=== PATIENT | male | born 1950 | race Caucasian/White ===

== ENCOUNTER → 2019-07-20 | Outpatient (CLI) | payer OTHER | LOC: CAT 12:57 | DX: Z13.6 Encounter for screening for cardiovascular disorders (principal); E78.00 Pure hypercholesterolemia, unspecified; I25.10 Atherosclerotic heart disease of native coronary artery without angina pectoris ==

== ENCOUNTER 2019-09-26 10:10 | Inpatient (IN) | payer OTHER, MEDICARE ==
[2019-09-13 13:13] LABS: HEMATOCRIT 44.3 % (42.0-52.0); HEMOGLOBIN 14.5 gm/dL (14.0-18.0); MCH 29.7 pg (26.0-34.0); MCHC 32.6 g/dL (28.0-37.0); MCV 91.3 fL (80.0-100.0); RBC 4.86 mil/uL (4.50-6.00); RDW 13.8 % (10.5-14.5); WBC 9.4 thou/uL (4.0-11.0)
[2019-09-13 13:16] LABS: URINE BILIRUBIN NEGATIVE (Negative); URINE BLOOD NEGATIVE (Negative); URINE CLARITY CLEAR; URINE COLOR YELLOW; URINE GLUCOSE-RANDOM* NEGATIVE (Negative); URINE KETONES NEGATIVE (Negative); URINE LEUKOCYTES-REFLEX NEGATIVE (Negative); URINE NITRITE-REFLEX NEGATIVE (Negative); URINE PROTEIN (DIPSTICK) NEGATIVE (Negative); URINE SPECIFIC GRAVITY 1.025 (1.005-1.035); URINE UROBILINOGEN 0.2 E.U./dl (0.2-1.0)
[2019-09-13 13:21] LABS: CALCIUM 9.7 mg/dL (8.5-10.1); CREATININE 1.2 mg/dL (0.7-1.3); POTASSIUM 4.1 mmol/L (3.5-5.1)
[2019-09-13 13:26] LABS: PROTIME 10.5 Seconds (9.3-11.4)
[~2019-09-26] VITALS: Ht 177.8 cm; Wt 102.1 kg
--- NOTE | ~2019-09-26 | O ---
[facility] [place] [address] OPERATIVE REPORT Name: GABRIELLE TREVIÑO Room #: 444-P [facility] M.R.#: [id number] Admission: 09/26/19 Attend Phys: Huseyin Gomez MD Discharge: Date of : 52 Report #: [id number] THIS REPORT FOR: //name// CC: Kelvin Gomez DATE OF SERVICE: 09/26/2019 PREOPERATIVE DIAGNOSIS: Right knee osteoarthritis. POSTOPERATIVE DIAGNOSIS: Right knee osteoarthritis. PROCEDURE: Right total knee arthroplasty using Navio robotic assistant to the dean. SURGEON: Huseyin Gomez MD SENIOR DIRECTOR CREATIVE SERVICES: Sona Gold PA-C. INDICATIONS FOR SENIOR DIRECTOR CREATIVE SERVICES: Throughout the case, extensive retraction and manipulation of the knee was required. This was afforded to me by my assistant to the dean. ANESTHESIA: LMA with an adductor canal block. IMPLANTS: [employer]hew size 6 Legion posterior stabilized femur, size 5 tibia, size 10 polyethylene and size 35 patella. TOURNIQUET TIME: 57 minutes. ESTIMATED BLOOD LOSS: 25 mL. COMPLICATIONS: None. SPECIMENS: None. CONDITION UPON LEAVING THE OPERATING ROOM: Stable. INDICATIONS FOR PROCEDURE: The patient is a 68-year-old gentleman with right knee osteoarthritis. He had failed conservative measures for this and after discussion with him, he elected for right total knee arthroplasty. DESCRIPTION OF PROCEDURE: Risks, benefits, alternatives, complications were discussed in detail with the patient including but not limited to risk of anesthesia, risk of damage to nerves, arteries, blood vessels, risk for infection, bleeding, risk for continued knee pain, need for reoperation. Informed consent was obtained from the patient. Right knee was appropriately marked in the preoperative holding area. IV Ancef was given for preoperative [address] [address] OPERATIVE REPORT Name: GABRIELLE TREVIÑO Room #: 444-P ADM IN .R.#: [id number] Admission: 09/26/19 Attend Phys: Huseyin Gomez MD Discharge: Date of : 52 Report #: [id number] antibiotics. He was brought to the operating room and placed in supine position on operating room table. LMA anesthesia was induced without complication. Tourniquet was placed on the right thigh. Right lower extremity was prepped and draped in normal sterile fashion. Timeout was performed properly identifying the patient and procedure as well as the instrumentation and implants. All in the operating room were in agreement. Right lower extremity was exsanguinated, tourniquet was inflated. Tourniquet time was 57 minutes. Standard midline approach to knee was made with 10 blade through the skin. Dissection was taken down sharply to the fascia and deep flaps were developed medially and laterally. First, 10 blade was used to make a medial parapatellar arthrotomy and the knee was inspected. There was severe tricompartmental osteoarthritis. ACL and PCL were removed sharply. Reference pins were placed in the femur and the tibia. The knee was then digitally mapped using the BackupAgent robotic system. Intraoperative plan was made and we sized the size 6 femur with a size 5 tibia and an 11 spacer. After acceptance of the intraoperative plan, the distal femoral cut was made with a Navio sivakumar. The 4-in-1 size 6 distal femoral cutting block was pinned in place and anterior, posterior and chamfer cuts were made. After this, attention was turned to the tibia and remainder of the meniscus was removed with Bovie cautery. Tibial resection guide was pinned in place using the Navio for placement and tibial resection was made. After this, tibia was sized, found to be a size 5 and a size 5 tibial trial was placed, pinned and punched. A size 6 femoral trial was placed and the box cut was made. This was then trialed with a size 9 and then a size 10 polyethylene. The size 10 polyethylene demonstrated a millimeter of laxity medially and laterally throughout range of motion and was found to have the best fit. After this, 9 mm was resected from the posterior surface of the patella and a size 35 patellar trial button was placed. Knee was taken through range of motion, found to be stable, found to have good patellar tracking. After this, trial components were removed. Bony ends were thoroughly irrigated with normal saline. Final size 5 tibia, size 6 Legion cobalt chrome posterior stabilized femur and a size 35 patella were cemented in place using standard cementation techniques. While the cement cured, a periarticular injection consisting of morphine, ropivacaine, epinephrine and Toradol was placed around the knee joint capsule. After the cement cured, tourniquet was deflated. Hemostasis was obtained with Bovie cautery. Final size 10 polyethylene was placed. A gram of vancomycin was placed deep in the joint. Fascia was closed with 0 Vicryl, skin was closed with 2-0 Vicryl and skin hardy and a VERNELL dressing was applied. The patient tolerated this procedure well and went to recovery room under care of anesthesia postoperatively. By: [id number] Huseyin Gomez MD /nt
[~2019-09-26 10:10] MED LIST: ALEVE220 M1 PO; ATORVASTATIN CA20 MG PO; MELOXICAM15 MG PO
[2019-09-26 11:28] VITALS: BP 166/96
[2019-09-26] MEDS ORDERED: TYLENOL WITH CO1 TA1 PO (11:58)
[2019-09-26] MEDS ORDERED: TYLENOL PO (12:03)
--- NOTE | 2019-09-26 16:41 | NUR ---
PT CARE ASSUMED AT 1540. A&Ox4. PT NAUSEATED, ZOFRAN GIVEN ALONG WITH PAIN MEDICATION. POLAR PACK IN PLACE. VERNELL DRESSEING DRY AND INTACT. SCD'S IN PLACE. FLUIDS TOLERATED WELL AND GOOD TO ADVANCE DIET. PT IS RESTING AND EAGERLY AWAITING TO GET UP LATER WITH THE WALKER TO GO TO THE BATHROOM. IV IS PATENT WITH NO REDNESS OR SWELLING. POST OP FLUIDS RUNNING. BED IS IN LOW POSITION, LOCKED WITH BED ALARM IN PLACE. CALL LIGHT IN REACH. VITALS STABLE. ADMISSION COMPLETE. WILL CONTINUE TO MONITOR.
[2019-09-26 20:14] VITALS: BP 129/82
[2019-09-27 00:20] VITALS: BP 115/69
--- NOTE | 2019-09-27 03:33 | NUR ---
ASSESSED AT START OF SHIFT WITH C/O OF PAIN. MEDICATION GIVEN SEE EMAR. VERNELL DRESSING, POLAR PACK AND SCD'S IN PLACE. GOT PT UP TO THE BATHROOM FEELING MUCH BETTER NO DIZZINESS NAUSEA MED GIVENX1. ON R/A IV INTACT AND FLUIDS INFUSING. AMBULATED PT TO THE END OF THE DOOR AND BACK. IS EDUCATION PROVIDED. FALL PREC IN PLACE AND WILL CONT WITH POC TILL EOS
[2019-09-27 04:33] VITALS: BP 129/79
[2019-09-27 05:32] LABS: HEMATOCRIT 39.3 % (42.0-52.0); HEMOGLOBIN 12.7 gm/dL (14.0-18.0); MCH 29.6 pg (26.0-34.0); MCHC 32.2 g/dL (28.0-37.0); RBC 4.27 mil/uL (4.50-6.00); RDW 13.8 % (10.5-14.5); WBC 11.6 thou/uL (4.0-11.0)
[2019-09-27 07:25] VITALS: BP 131/81
--- NOTE | 2019-09-27 09:49 | NUR ---
PT CARE ASSUMED AT 0700. A&Ox4. VERNELL DRESSING INTACT WITH NO DRAINAGE OR BLEEDING. POLAR PACK IN PLACE. CAP REFILL ON R. LOWER EXTREMITY INTACT. PAIN IS WELL MANAGED AND EDUCATION GIVEN ABOUT ALTERNATING THE PAIN MEDS HE HAS ON BOARD. PT HAD A HEADACHE THIS AM DURING SHIFT CHANGE THAT WENT AWAY WITH A COLD WASH CLOTH ON HIS FORE HEAD. PT IS ALSO EXPERIENCING SOME INDIGESTION. THE OFFICE WAS CALLED AND AWAITING FURTHER INSTRUCTIONS. SCD'S/[facility]ES IN PLACE. BED IN LOW POSITION, LOCKED, WITH BED ALARM IN PLACE. CALL LIGHT IN REACH. PT IS EAGER TO GET UP WITH PT TODAY AND WANTS TO GO HOME.
--- NOTE | 2019-09-27 10:02 | NUR ---
INITIAL ASSESSMENT: Pt evaluated for d/c planning needs. Reviewed chart and spoke with nurse and pt. Pt is alert and oriented. Pt lives in house with spouse and was independent with ADL's prior to admission to the hospital. Pt has walker at home. Pt has outpatient PT arranged to begin on Tuesday. Pt plans on returning home on d/c from hospital. Will remain available to assist as needed.
[2019-09-27] MEDS ORDERED: ASPIR 8181 MG PO (11:08)
[2019-09-27] MEDS ORDERED: HYDROCODON-ACE1 EAC7 PO (11:08)
[2019-09-27] MEDS ORDERED: NEURONTIN 300300 M1 PO (11:09)
[2019-09-27] MEDS ORDERED: MS CONTIN15 MG PO (11:09)
[2019-09-27 11:40] VITALS: BP 131/81
== END 2019-09-27 12:46 | disposition home or self-care (01) | DRG 470 ==
LOC: 4S 10:10 → TBA 10:10 → 4S 15:41
PROVIDERS: ADMIT Orthopaedic Surgery
PROC: 0SRC0J9 Replacement of Right Knee Joint with Synthetic Substitute, Cemented, Open Approach (ICD-10-PCS; principal; 2019-09-26)
PROC: 8E0Y0CZ Robotic Assisted Procedure of Lower Extremity, Open Approach (ICD-10-PCS; principal; 2019-09-26)
DX: M17.11 Unilateral primary osteoarthritis, right knee (principal); R35.0 Frequency of micturition; R53.83 Other fatigue; R06.02 Shortness of breath
CPT/HCPCS: 10102; 50010; 50101; 50415; 50954; 51130; 51225; 51320; 51412; 52282; 53000; 53078; 53364; 56527; 56528; 57095; 57103; 57110; 57127; 57180; 62110; 62900; 64043; 65060; 70005

== ENCOUNTER → 2020-02-29 | Outpatient (CLI) | payer OTHER, MEDICARE ==
[~2020-02-29] MED LIST changes: +ASPIR 8181 MG PO; +HYDROCODON-ACE1 EAC7 PO; +MS CONTIN15 MG PO; +NEURONTIN 300300 M1 PO; +TYLENOL PO; +TYLENOL WITH CO1 TA1 PO
== END ==
LOC: SJCVC 14:02
PROVIDERS: ATTEND Internal Medicine
DX: R93.1 Abnormal findings on diagnostic imaging of heart and coronary circulation (principal); I10 Essential (primary) hypertension; E78.2 Mixed hyperlipidemia; Z79.899 Other long term (current) drug therapy

== ENCOUNTER → 2020-03-10 | Outpatient (CLI) | payer OTHER, MEDICARE | LOC: SJCVCIMAG 09:42 | PROVIDERS: ATTEND Internal Medicine | DX: R93.1 Abnormal findings on diagnostic imaging of heart and coronary circulation (principal); I10 Essential (primary) hypertension; E78.5 Hyperlipidemia, unspecified ==

== ENCOUNTER → 2020-08-25 | Outpatient (CLI) | payer OTHER, MEDICARE | LOC: SJCVC 14:05 | PROVIDERS: ATTEND Internal Medicine | DX: I45.10 Unspecified right bundle-branch block (principal); I25.10 Atherosclerotic heart disease of native coronary artery without angina pectoris; R93.1 Abnormal findings on diagnostic imaging of heart and coronary circulation; E78.2 Mixed hyperlipidemia; I10 Essential (primary) hypertension; Z72.89 Other problems related to lifestyle; Z79.899 Other long term (current) drug therapy ==

== ENCOUNTER → 2021-02-23 | Outpatient (CLI) | payer OTHER, MEDICARE | LOC: SJCVC 10:43 | PROVIDERS: ATTEND Internal Medicine | DX: R93.1 Abnormal findings on diagnostic imaging of heart and coronary circulation (principal); E78.2 Mixed hyperlipidemia; I10 Essential (primary) hypertension; I25.10 Atherosclerotic heart disease of native coronary artery without angina pectoris; Z72.89 Other problems related to lifestyle; Z79.899 Other long term (current) drug therapy ==

== ENCOUNTER → 2021-08-25 | Outpatient (CLI) | payer OTHER, MEDICARE | LOC: SJCVC 10:07 | PROVIDERS: ATTEND Internal Medicine | DX: R93.1 Abnormal findings on diagnostic imaging of heart and coronary circulation (principal); I10 Essential (primary) hypertension; E78.5 Hyperlipidemia, unspecified; Z98.890 Other specified postprocedural states; Z79.899 Other long term (current) drug therapy ==